=== PATIENT | male | born 1965 | race Two or more races ===

== ENCOUNTER 2018-09-08 17:21 | Emergency (ER) | payer OTHER ==
[~2018-09-08] VITALS: Ht 170.2 cm; Wt 81.6 kg
[2018-09-08 17:35] VITALS: BP_SYST 143
[2018-09-08 19:21] VITALS: BP_SYST 136
== END 2018-09-08 19:21 | disposition home or self-care (01) ==
LOC: SED 17:21
DX: S86.012A Strain of left Achilles tendon, initial encounter (principal); X50.9XXA Other and unspecified overexertion or strenuous movements or postures, initial encounter; Y93.89 Activity, other specified; Y92.89 Other specified places as the place of occurrence of the external cause; Y99.8 Other external cause status
CPT/HCPCS: 99283